=== PATIENT | male | born 1955 | race Caucasian/White ===

== ENCOUNTER 2025-01-07 09:22 | Outpatient (CLI) | payer MEDICARE ==
[2025-01-07 12:40] LABS: Estimated GFR - POC 82.0
== END 2025-01-07 09:23 | disposition home or self-care (01) ==
LOC: CSHCT 09:22
PROVIDERS: ATTEND Family Medicine
DX: R10.9 Unspecified abdominal pain (principal); M54.16 Radiculopathy, lumbar region; N32.89 Other specified disorders of bladder; N28.1 Cyst of kidney, acquired; K76.9 Liver disease, unspecified; M48.061 Spinal stenosis, lumbar region without neurogenic claudication; M48.07 Spinal stenosis, lumbosacral region
CPT/HCPCS: 72131; 74178; 82565